=== PATIENT | male | born 1980 | race Caucasian/White ===

== ENCOUNTER 2019-02-10 06:19 | Emergency (ER) | payer SELFPAY ==
[2019-02-10 06:27] VITALS: RESP 20; TEMP 97.7
[2019-02-10] MEDS ORDERED: AMLODIPINE 5 MG TAB PO SCH ×2 (07:07→09:00)
[2019-02-10] MEDS ORDERED: CITALOPRAM 20 MG TAB PO SCH ×2 (07:08→09:00)
[2019-02-10] MEDS ORDERED: AMLODIPINE 5 MG TAB ONE (07:27)
[2019-02-10] MEDS ORDERED: CITALOPRAM 20 MG TAB ONE (07:27)
[2019-02-10 07:38] LABS: BASOPHILS % (AUTO) 2 % (0-3); EOSINOPHILS % (AUTO) 2 % (0-9); HEMATOCRIT 49 % (39-53); HEMOGLOBIN 15.6 gm/dl (13.5-17.7); LYMPHOCYTES % (AUTO) 30.5 % (10-50); MEAN CORPUSCULAR HEMOGLOBIN 27.8 pg (27.0-32.0); MEAN CORPUSCULAR HGB CONC 31.9 gm/dl (32.0-36.0); MEAN CORPUSCULAR VOLUME 87 fL (80-100); MONOCYTES % (AUTO) 8.2 % (0-12); NEUTROPHILS % (AUTO) 57.7 % (37-80)
[2019-02-10 07:46] LABS: CALCIUM 8.7 mg/dl (8.5-10.1); CARBON DIOXIDE 29.5 mEq/L (21-32); CREATININE 0.96 mg/dl (0.80-1.30)
[2019-02-10 07:54] VITALS: PULSE 84
[2019-02-10 08:11] VITALS: BP 128/96; O2SAT 99
[2019-02-10] MEDS ORDERED: BUSPIRONE HCL 30 MG PO SCH (09:00)
[2019-02-10] MEDS ORDERED: ROPINIROLE HCL 0.25 MG PO SCH (21:00)
== END 2019-02-10 08:27 | disposition home or self-care (01) | DRG 880 ==
LOC: ED 06:19
DX: F41.9 Anxiety disorder, unspecified (principal); R42 Dizziness and giddiness; R40.2412 Glasgow coma scale score 13-15, at arrival to emergency department
CPT/HCPCS: 36415; 80048; 85025; 99282; 99283; A9270-GY